=== PATIENT | male | born 1955 | race Two or more races ===

== ENCOUNTER → 2020-05-01 | Outpatient (CLI) | payer MEDICAID | END | disposition home or self-care (01) | LOC: RAD 10:53 | PROVIDERS: ATTEND Family Medicine | DX: K80.20 Calculus of gallbladder without cholecystitis without obstruction (principal); K31.84 Gastroparesis; K40.90 Unilateral inguinal hernia, without obstruction or gangrene, not specified as recurrent | CPT/HCPCS: 74240; 74248; 76700; 76857 ==